=== PATIENT | male | born 1985 | race African-American/Black ===

== ENCOUNTER 2019-04-25 22:43 | Emergency (ER) | payer OTHER ==
[2019-04-25 22:50] VITALS: BP 126/76; PULSE 97; TEMP 97.8; BMI 26.9
--- NOTE | 2019-04-25 23:50 | PDOC ---
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 denies pmhx last tetanus unknown. Past History - Past Medical History Allergies/Adverse Reactions: Allergies Allergy/AdvReac Type Severity Reaction Status Date / Time No Known Allergies Allergy Verified 04/25/19 22:50 COPD: No - Psycho Social/Smoking Cessation Hx Smoking History: Never smoked Review of Systems - Review of Systems Able to Perform ROS?: Yes Is the patient limited [place]ian proficient: No Constitutional: No: Symptoms Reported, See HPI, Chills, Diaphoresis, Fever, Loss of Appetite, Malaise, Night Sweats, Weakness, Weight Stable, Unintentional Wgt. Loss, Unexplained wgt Loss, Other *Physical Exam - Vital Signs Last Vital Signs Temp Pulse Resp BP Pulse Ox 97.8 F 97 H 18 126/76 97 04/25/19 22:49 04/25/19 22:49 04/25/19 22:49 04/25/19 22:49 04/25/19 22:49 - Physical Exam General Appearance: Yes: Appropriately Dressed Extremity: positive: Other (right index finger skin avulsion with no tendon injury, sensation intact, ) Integumentary: positive: Normal Color, Dry, Warm Neurologic: positive: Fully Oriented, Alert Procedures - Consent Consent obtained: Verbal - Laceration/Wound Repair Finger Wound Explored: clean Wound's Depth, Shape: contused tissue (with skin avulsion to right index finger and left third digit abrasion) Irrigated w/ Saline: Yes Sterile Dressing Applied: Yes (bacitracin applied. ) ED Progress Note - Progress Note Progress Note: 04/26/19 04:49 finger avulsion P: wound cleaned and sterile dressing applied. wound check in 2 days with pcp Discharge - Discharge Information Problems reviewed: Yes Clinical Impression/Diagnosis: Abrasion of finger, left Qualifiers: Encounter type: initial encounter Qualified Code(s): S60.419A - Abrasion of unspecified finger, initial encounter Finger avulsion Qualifiers: Encounter type: initial encounter Qualified Code(s): S61.209A - Unspecified open wound of unspecified finger without damage to nail, initial encounter Disposition: HOME - Follow up/Referral Referrals: Lis Madrid MD [Primary Care Provider] - - Patient Discharge Instructions Patient Printed Discharge Instructions: DI for Avulsion Laceration (Not Requiring Sutures) Additional Instructions: Keep area clean dry and intact Keep dressing on until tomorrow If any increased bleeding through the dressing return immediately to emergency department Keep area clean dry and intact bacitracin x3 days, then let it dry out follow up with your doctor in two days for a wound check Please return immediately to emergency department with any increased redness, swelling, signs of infection - Post Discharge Activity Work/Back to School Note: Back to Work
[2019-04-25] MEDS ORDERED: DIPHTH,PERTUSS(ACELL),TET 0.5 ML DISP.SYRIN IM ONE (23:54)
[2019-04-26] MEDS ORDERED: DIPHTH,PERTUSS(ACELL),TET 0.5 ML DISP.SYRIN IM ONE (00:20)
[2019-04-26] MEDS ORDERED: BACITRACIN 0.9 GM PACKET ONE (00:36)
== END 2019-04-26 00:54 | disposition home or self-care (01) ==
LOC: JER 22:43
PROC: 3E0234Z Introduction of Serum, Toxoid and Vaccine into Muscle, Percutaneous Approach (ICD-10-PCS; principal; 2019-04-25)
DX: S60.419A Abrasion of unspecified finger, initial encounter (principal); W31.89XA Contact with other specified machinery, initial encounter; Y93.G1 Activity, food preparation and clean up; Y92.89 Other specified places as the place of occurrence of the external cause; Y99.0 Civilian activity done for income or pay
CPT/HCPCS: 90715; 99282-25